=== PATIENT | female | born 1985 | race Hispanic/Latino ===

== ENCOUNTER 2017-07-25 15:33 | Emergency (ER) | payer SELFPAY ==
[~2017-07-25] VITALS: Ht 154.9 cm; Wt 100.0 kg
[~2017-07-25 15:33] MED LIST: DILAUDID2 MG PO; Motrin PO
[2017-07-25 18:42] VITALS: BP 130/86
== END 2017-07-25 18:44 | disposition home or self-care (01) ==
LOC: EME 15:33
PROVIDERS: Physician Assistant
DX: J10.1 Influenza due to other identified influenza virus with other respiratory manifestations (principal); Z88.0 Allergy status to penicillin
CPT/HCPCS: 71046; 87502; 87651 90; 99281; 99284; J7030